=== PATIENT | male | born 1955 | race Two or more races ===

== ENCOUNTER 2019-05-16 13:11 | Emergency (ER) | payer BC ==
[~2019-05-16] VITALS: Ht 167.6 cm; Wt 81.6 kg
[2019-05-16 13:14] VITALS: Ht 167.6 cm; Wt 81.6 kg
[2019-05-16 17:35] VITALS: BP 112/76
== END 2019-05-16 18:01 | disposition home or self-care (01) ==
LOC: ED 13:11
DX: K21.9 Gastro-esophageal reflux disease without esophagitis (principal); R03.0 Elevated blood-pressure reading, without diagnosis of hypertension
CPT/HCPCS: Q0092